=== PATIENT | female | born 1995 | race Caucasian/White ===

== ENCOUNTER 2018-09-22 13:24 | Emergency (ER) | payer MEDICAID, OTHER ==
[~2018-09-22] VITALS: Ht 154.9 cm; Wt 68.0 kg
[2018-09-22] MEDS ORDERED: CITA20TA9 (13:37)
[2018-09-22] MEDS ORDERED: BUPIVACAINE 0.5% 30 ML (SENSORCAINE) VIAL ONE ×2 (13:41→13:49)
[2018-09-22] MEDS ORDERED: LIDOCAINE 1% INJ 20 ML 20 ML VIAL INJ ONE (13:45)
[2018-09-22] MEDS ORDERED: BUPIVACAINE 0.25% 30 ML (SENSORCAINE) VIAL INJ ONE (13:45)
--- NOTE | 2018-09-22 13:57 | ED EENT ---
History of Present Illness General Chief Complaint: Dental Problems/Pain Stated Complaint: DENTAL PAIN Nursing Triage Note: REPORTS HER LEFT LOWER GUM LINE AND TETTH ARE HURTING. Source: patient Exam Limitations: no limitations History of Present Illness Date Seen by Provider: Sep 22, 2018 Time Seen by Provider: 13:35 Initial Comments This 23-year-old young lady presents to the emergency room with complaints of intense dental pain around the left lower molars. She has deep dull caries in that location. Pain just started this morning. She denies associated fever. She tried to call the dentist this morning but they were not open. Allergies and Home Medications Allergies Coded Allergies: amoxicillin (Verified Allergy, Mild, RASH, 09/22/18) Penicillins (Verified Allergy, Unknown, 09/22/18) Sulfa (Sulfonamide Antibiotics) (Verified Allergy, Unknown, 09/22/18) Home Medications Clindamycin HCl 300 Mg Capsule, 300 MG PO QID Prescribed by: CHER LIZAMA on 09/22/18 1409 Hydrocodone/Acetaminophen 1 Each Tablet, 1 TAB PO Q4-6HR Prescribed by: CHER LIZAMA on 09/22/18 1409 Patient Home Medication List Home Medication List Reviewed: Yes Review of Systems Review of Systems Constitutional: no symptoms reported Eyes: No Symptoms Reported Ears: No Symptoms Reported Nose: no symptoms reported Mouth: see HPI Throat: no symptoms reported Respiratory: no symptoms reported Cardiovascular: no symptoms reported Gastrointestinal: no symptoms reported Musculoskeletal: no symptoms reported Skin: no symptoms reported Neurological: No Symptoms Reported Past Hqxfyjr-Xsrcmk-Ggpqnk Hx Past Med/Social Hx: Reviewed Nursing Past Med/Soc Hx Patient Social History Alcohol Use: Denies Use Recreational Drug Use: No Smoking Status: Current Everyday Smoker Type Used: Cigarettes 2nd Hand Smoke Exposure: Yes Recent Foreign Travel: No (N) Contact w/Someone Who Travel: No (N) Recent Infectious Disease Expo: No Recent Hopitalizations: No Physical Abuse: No Sexual Abuse: No Mistreated: No Fear: No Seasonal Allergies Seasonal Allergies: No Past Medical History Surgeries: No Respiratory: No Cardiac: No Neurological: No Genitourinary: No Gastrointestinal: No Musculoskeletal: No Endocrine: No HEENT: No Cancer: No Psychosocial: Yes Anxiety, Depression Integumentary: No Physical Exam Vital Signs Vital Signs - First Documented 09/22/18 13:37 Temp 97.5 Pulse 93 Resp 18 B/P (MAP) 158/89 (112) Pulse Ox 100 O2 Delivery Room Air Height, Weight, BMI Height: 5'1.00" Weight: 150lbs. oz. 68.080477wj; BMI Method:Stated General Appearance: WD/WN, moderate distress Ears: bilateral ear auricle normal, bilateral ear canal normal, bilateral ear TM normal Nose: normal inspection Mouth/Throat: pharynx normal, other (deep dental caries in the left posterior lower molar. No associated inflammation or overt abscess) Neck: supple, normal inspection; No lymphadenopathy (R), No lymphadenopathy (L) Cardiovascular: regular rate, rhythm, no edema Respiratory: lungs clear, normal breath sounds, no respiratory distress, no accessory muscle use Neurologic/Psychiatric: marketing consultant II-XII nml as tested, no motor/sensory deficits, alert, normal mood/affect, oriented x 3 Skin: normal color, warm/dry Procedures/Interventions Dental Procedures: infra-alveolar nerve block. Nerve block along the lateral jawline. Progress/Results/Core Measures Results/Orders My Orders Orders - CHER BLAKE MD Lidocaine 1% Inj 20 Ml (Xylocaine 1% Inj (09/22/18 13:45) Bupivacaine 0.25% Injection (Sensorcaine (09/22/18 13:45) Bupivacaine 0.5% Injection (Sensorcaine (09/22/18 13:41) Bupivacaine 0.5% Injection (Sensorcaine (09/22/18 13:49) Bupivacaine 0.5% Injection (Sensorcaine (09/22/18 14:00) Ketorolac Injection (Toradol Injection) (09/22/18 14:15) Medications Given in ED Current Medications Medications Dose Ordered Sig/Dandy Route Start Time Stop Time Status Last Admin Dose Admin Bupivacaine HCl 30 ml ONCE ONCE INJ 09/22/18 14:00 09/22/18 14:01 DC 09/22/18 13:56 30 ML Ketorolac Tromethamine 30 mg ONCE ONCE IM 09/22/18 14:15 09/22/18 14:16 DC 09/22/18 14:13 30 MG Lidocaine HCl 20 ml ONCE ONCE INJ 09/22/18 13:45 09/22/18 13:46 DC 09/22/18 13:57 20 ML Vital Signs/I&O 09/22/18 09/22/18 13:37 14:17 Temp 97.5 97.5 Pulse 93 93 Resp 18 18 B/P (MAP) 158/89 (112) 158/89 (112) Pulse Ox 100 99 O2 Delivery Room Air Room Air Blood Pressure Mean: 112 Progress Progress Note : Progress Note No overt abscess was identified that could be drained. Options were discussed with patient. She elected to have a nerve block. An infra-alveolar nerve block was performed using 1.5 mL 0.5 percent Marcaine and 1.5 mL one percent lidocaine. This failed to give her relief. She remarks that her pain seems to be localized along the lateral aspect of the mid mandible on the left. She is tender to touch in that area. An additional one mL 0.5 percent Marcaine and 1 mL one percent lidocaine was injected into separate injections along the mandibular line. This also failed to give her relief. As an alternative, an injection of Toradol was administered. Patient was prescribed clindamycin and hydrocodone and dismissed. Departure Impression Primary Impression: Dental caries Additional Impression: Pain, dental Disposition: HOME, SELF-CARE Condition: Improved Departure-Patient Inst. Decision time for Depature: 14:05 Referrals: NO,LOCAL PHYSICIAN (PCP/Family) Primary Care Physician Patient Instructions: Dental Pain (DC), Tooth Decay, Adult (DC) Add. Discharge Instructions: [address] your teeth gently twice daily. Rinse with antiseptic mouthwash such as Listerine as tolerated. Take ibuprofen up to 600 mg every 6 hours as needed for pain. Add hydrocodone for pain not controlled by ibuprofen. See a dentist as soon as possible for further evaluation and possible dental extraction. Complete your antibiotics as prescribed. All discharge instructions reviewed with patient and/or family. Voiced understanding. Scripts Hydrocodone/Acetaminophen (Hydrocodone-Acetamin 5-325 mg) 1 Each Tablet 1 TAB PO Q4-6HR for PAIN-MODERATE MDD 10, #15 TAB Prov: CHER BLAKE MD 09/22/18 Clindamycin HCl (Clindamycin HCl) 300 Mg Capsule 300 MG PO QID, #40 CAP Prov: CHER BLAKE MD 09/22/18 CHER BLAKE MD Sep 22, 2018 13:57
[2018-09-22] MEDS ORDERED: BUPIVACAINE 0.5% 30 ML (SENSORCAINE) VIAL INJ ONE (14:00)
[2018-09-22] MEDS ORDERED: CLIN300C11 PO (14:09)
[2018-09-22] MEDS ORDERED: HYDR-3812 PO (14:09)
[2018-09-22] MEDS ORDERED: KETOROLAC 30 MG/ML VIAL IM ONE (14:15)
[2018-09-22 14:17] VITALS: BP 158/89
== END 2018-09-22 14:19 | disposition home or self-care (01) ==
LOC: ER FS 13:26
DX: K02.9 Dental caries, unspecified (principal); F41.9 Anxiety disorder, unspecified; F32.9 Major depressive disorder, single episode, unspecified; F17.210 Nicotine dependence, cigarettes, uncomplicated; Z88.0 Allergy status to penicillin; Z88.2 Allergy status to sulfonamides
CPT/HCPCS: 96372; 99284

== ENCOUNTER 2018-10-27 15:23 | Emergency (ER) | payer MEDICAID ==
[~2018-10-27] VITALS: Ht 154.9 cm; Wt 68.0 kg
[~2018-10-27 15:23] MED LIST: CITA20TA9; CLIN300C11 PO; HYDR-3812 PO
--- NOTE | 2018-10-27 15:37 | ED Lower Extremity ---
General Chief Complaint: Lower Extremity Stated Complaint: LT FOOT INJURY Source: patient History of Present Illness Date Seen by Provider: Oct 27, 2018 Time Seen by Provider: 13:30 Initial Comments 23-year-old female who presents with left ankle injury. 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 She pulled down by the hose too quickly and caught her foot in the stairs. She complains of pain in the left anterior ankle. There is mild swelling, no obvious deformity. Patient reports no other injury. Onset: just prior to arrival Allergies and Home Medications Allergies Coded Allergies: amoxicillin (Verified Allergy, Mild, RASH, 09/22/18) Penicillins (Verified Allergy, Unknown, 09/22/18) Sulfa (Sulfonamide Antibiotics) (Verified Allergy, Unknown, 09/22/18) Home Medications Clindamycin HCl 300 Mg Capsule, 300 MG PO QID Prescribed by: CHER LIZAMA on 09/22/18 1409 Hydrocodone/Acetaminophen 1 Each Tablet, 1 TAB PO Q4-6HR Prescribed by: CHER LIZAMA on 09/22/18 1409 Patient Home Medication List Home Medication List Reviewed: Yes Review of Systems Constitutional: no symptoms reported Respiratory: no symptoms reported Cardiovascular: no symptoms reported Gastrointestinal: no symptoms reported Musculoskeletal: see HPI Past Tkjnsml-Awswfu-Gpocne Hx Past Med/Social Hx: Reviewed Nursing Past Med/Soc Hx Patient Social History Type Used: Cigarettes 2nd Hand Smoke Exposure: Yes Recent Hopitalizations: No Seasonal Allergies Seasonal Allergies: No Past Medical History Surgeries: No Respiratory: No Cardiac: No Neurological: No Genitourinary: No Gastrointestinal: No Musculoskeletal: No Endocrine: No HEENT: No Cancer: No Psychosocial: Yes Anxiety, Depression Integumentary: No Physical Exam Vital Signs Capillary Refill : Height, Weight, BMI Height: 5'1.00" Weight: 150lbs. oz. 68.909189on; BMI Method:Stated General Appearance: WD/WN, no apparent distress Neck: full range of motion, supple Cardiovascular: normal peripheral pulses, regular rate, rhythm Respiratory: chest non-tender, lungs clear, normal breath sounds Gastrointestinal: non tender, soft Hips: bilateral hip non-tender Knees: bilateral knee non-tender Ankles: left ankle soft tissue tenderness (Anterior aspect of the left ankle), left ankle swelling Progress/Results/Core Measures Results/Orders My Orders Orders - AMAIRANI HAWKINS DO Ankle 3 View Left (10/27/18 15:28) Gel Ankle Brace (10/27/18 15:51) Progress Progress Note : Progress Note Review negative x-ray with patient. Patient will be placed in a gel ankle splint. Patient able to ambulate as needed on it. Resume activity as tolerated. Patient be discharged home in stable condition. Should follow-up with her primary care physician in 7-10 days if symptoms are not improving or continue to worsen. Diagnostic Imaging Diagonstic Imaging: Xray Plain Films/CT/US/NM/MRI: ankle Departure Impression Primary Impression: Left ankle sprain Qualified Codes: S93.402A - Sprain of unspecified ligament of left ankle, initial encounter Disposition: HOME, SELF-CARE Condition: Stable Departure-Patient Inst. Referrals: NO,LOCAL PHYSICIAN (PCP/Family) Primary Care Physician Patient Instructions: Ankle Sprain (DC) AMAIRANI HAWKINS DO Oct 27, 2018 15:37
--- NOTE | 2018-10-27 15:47 | Diagnostic Imaging Report ---
INDICATION: Left ankle pain. Three views of the left ankle were obtained. FINDINGS: Alignment is normal. The plafonds and talar dome are intact. Ankle mortise is symmetric. No fracture dislocation. Soft tissues are unremarkable. IMPRESSION: No acute fracture or dislocation. Dictated by: Dictated on workstation # [id number]
[2018-10-27 16:15] VITALS: BP 130/69
== END 2018-10-27 16:30 | disposition home or self-care (01) ==
LOC: EDUNIT# 15:23 → ER FS 15:24
DX: S93.402A Sprain of unspecified ligament of left ankle, initial encounter (principal); F41.9 Anxiety disorder, unspecified; F32.9 Major depressive disorder, single episode, unspecified; Z88.0 Allergy status to penicillin; Z88.2 Allergy status to sulfonamides; Z77.22 Contact with and (suspected) exposure to environmental tobacco smoke (acute) (chronic); X50.1XXA Overexertion from prolonged static or awkward postures, initial encounter
CPT/HCPCS: 73610

== ENCOUNTER 2019-01-28 00:47 | Emergency (ER) | payer MEDICAID ==
[~2019-01-28] VITALS: Ht 154.9 cm; Wt 68.0 kg
--- OUTSIDE RECORDS SUMMARY | 2019-01-28 00:53 | XMS REPORT | Continuity of Care Document ---
Author Organization Unknown Address Unknown Phone Unavailable Allergies There is no data. Medications There is no data. Problems There is no data. Procedures There is no data. Results Test Result Range HCG, QUANTITATIVE - 12/11/18 11:38 HCG, TOTAL, QN <2 mIU/mL NRG Encounters ACCT No. Visit Date/Time Discharge Status Pt. Type Provider Facility Loc./Unit Complaint [id number] 01/24/2019 17:00:00 01/24/2019 23:59:59 [facility] Outpatient JUN VALLES L[facility] [id number] 12/11/2018 11:00:00 Document Registration
--- NOTE | 2019-01-28 01:11 | ED Headache ---
General Chief Complaint: Head/Cervical Problems Stated Complaint: FEVER,CHILLS,MIGRAINE Nursing Triage Note: PT. REPORTED SHE HAS HAD A MIGRAINE SINCE MONDAY, NAUSEA AND VOMITING STARTED YESTERDAY AND SHE HAS VOMITED MAYBE 5 TIMES. SHE REPORTED SHE IS CHILLING AND HAS A FEVER. PT. TEMP. WAS 99.8. Nursing Sepsis Screen: Possible Sepsis Risk Source: patient History of Present Illness Date Seen by Provider: Jan 28, 2019 Time Seen by Provider: 01:00 Initial Comments This is a 23 y/o f who presents to the ED with c/o headache. Reports progressive waxing/waning headache for the past Monday. Onset of nausea/vomiting yesterday. Contrary to triage note, no fever. No GI bleed symptoms. no travel. UTD on vaccinations. Headache is diffuse, 8/10, +photophobia, +phonophobia. No alleviating factors. Allergies and Home Medications Allergies Coded Allergies: amoxicillin (Verified Allergy, Mild, RASH, 09/22/18) Penicillins (Verified Allergy, Unknown, 09/22/18) Sulfa (Sulfonamide Antibiotics) (Verified Allergy, Unknown, 09/22/18) Home Medications Clindamycin HCl 300 Mg Capsule, 300 MG PO QID Prescribed by: CHER LIZAMA on 09/22/18 1409 Hydrocodone/Acetaminophen 1 Each Tablet, 1 TAB PO Q4-6HR Prescribed by: CHER LIZAMA on 09/22/18 1409 Patient Home Medication List Home Medication List Reviewed: Yes Review of Systems Review of Systems Constitutional: No chills, No fever, No weakness Eyes: Denies Blurred Vision, Denies Pain; Photophobia Respiratory: No cough, No short of breath, No stridor, No wheezing Cardiovascular: No edema, No palpitations Gastrointestinal: No abdominal pain, No diarrhea; nausea, vomiting Genitourinary: No dysuria, No frequency Musculoskeletal: No back pain, No joint pain, No muscle pain, No muscle stiff ness, No neck pain Skin: No pruritus All Other Systems Reviewed Negative Unless Noted: Yes Past Lavkhqp-Zmemud-Nbrfji Hx Patient Social History Type Used: Cigarettes 2nd Hand Smoke Exposure: No Recent Foreign Travel: No Contact w/Someone Who Travel: No Recent Infectious Disease Expo: No Recent Hopitalizations: No Physical Abuse: No Sexual Abuse: No Mistreated: No Fear: No Seasonal Allergies Seasonal Allergies: No Past Medical History Surgeries: No Respiratory: No Cardiac: No Neurological: No Genitourinary: No Gastrointestinal: No Musculoskeletal: No Endocrine: No HEENT: No Cancer: No Psychosocial: Yes Anxiety, Depression Integumentary: No Blood Disorders: No Physical Exam Vital Signs Vital Signs - First Documented 01/28/19 00:55 Temp 99.8 Pulse 100 Resp 16 B/P (MAP) 143/61 (88) O2 Delivery Room Air Capillary Refill : Less Than 3 Seconds Height, Weight, BMI Height: 5'1.00" Weight: 150lbs. oz. 68.843251jm; BMI Method:Stated General Appearance: WD/WN, other (non-toxic appearing) HEENT: PERRL/EOMI Neck: non-tender, full range of motion Cardiovascular: regular rate, rhythm, no gallop, no murmur Respiratory: normal breath sounds, no respiratory distress, no accessory muscle use Gastrointestinal: normal bowel sounds, non tender, soft Extremities: normal range of motion, non-tender, no pedal edema Psychiatric: alert, oriented x 3 Crainal Nerves: normal hearing, normal speech, PERRL; No facial droop Coordination/Gait: normal finger to nose, normal gait Motor/Sensory: no motor deficit, no sensory deficit Skin: normal color, warm/dry Progress/Results/Core Measures Results/Orders Lab Results Laboratory Tests Test 01/28/19 01:15 Range/Units Urine Test NEGATIVE NEGATIVE My Orders Orders - GM MATIAS DO Hcg,Qualitative Urine (01/28/19 01:06) Ketorolac Injection (Toradol Injection) (01/28/19 01:15) Ns Iv 1000 Ml (Sodium Chloride 0.9%) (01/28/19 01:15) Diphenhydramine Injection (Benadryl Inje (01/28/19 01:15) Prochlorperazine Injection (Compazine In (01/28/19 01:15) Medications Given in ED Current Medications Medications Dose Ordered Sig/Dandy Route Start Time Stop Time Status Last Admin Dose Admin Diphenhydramine HCl 50 mg ONCE ONCE IVP 01/28/19 01:15 01/28/19 01:16 DC 01/28/19 01:29 50 MG Ketorolac Tromethamine 30 mg ONCE ONCE IVP 01/28/19 01:15 01/28/19 01:16 DC 01/28/19 01:29 30 MG Prochlorperazine Edisylate 10 mg ONCE ONCE IV 01/28/19 01:15 01/28/19 01:16 DC 01/28/19 01:28 10 MG Vital Signs/I&O 01/28/19 01/28/19 00:55 01:43 Temp 99.8 98.4 Pulse 100 Resp 16 B/P (MAP) 143/61 (88) O2 Delivery Room Air Blood Pressure Mean: 88 Progress Progress Note : Progress Note Sleeping. Feeling better. Has a ride home. Discussed continued supportive care. ER return precautions given. Pt verbalized understanding. All questions answered. Departure Impression Primary Impression: Migraine Additional Impressions: Vomiting Dehydration Disposition: 01 HOME, SELF-CARE Condition: Improved Departure-Patient Inst. Referrals: NO,LOCAL PHYSICIAN (PCP/Family) Primary Care Physician Patient Instructions: Migraine Headache (DC) Add. Discharge Instructions: Please read the attached handout. Drink plenty of fluids for the next 24 hrs. Return to the ER if your symptoms worsen or you have any other concerns. All discharge instructions reviewed with patient and/or family. Voiced understanding. GM MATIAS DO Jan 28, 2019 01:11
[2019-01-28] MEDS ORDERED: diphenhydrAMINE 50 MG/ML INJ (BENADRYL) IVP ONE (01:15)
[2019-01-28] MEDS ORDERED: PROCHLORPERAZINE 10 MG/2ML INJ (COMPAZINE) IV ONE (01:15)
[2019-01-28] MEDS ORDERED: KETOROLAC 30 MG/ML VIAL IVP ONE (01:15)
[2019-01-28] MEDS ORDERED: NS IV 1000 ML 1,000 ML IV SCH (01:15)
[2019-01-28 01:53] VITALS: BP 143/61
== END 2019-01-28 01:56 | disposition home or self-care (01) ==
LOC: EDUNIT# 00:47 → ER FS 00:49
DX: G43.909 Migraine, unspecified, not intractable, without status migrainosus (principal); R11.2 Nausea with vomiting, unspecified; E86.0 Dehydration; F41.9 Anxiety disorder, unspecified; F32.9 Major depressive disorder, single episode, unspecified; Z88.0 Allergy status to penicillin; Z88.1 Allergy status to other antibiotic agents; Z88.2 Allergy status to sulfonamides
CPT/HCPCS: 84703; 96374; 96375; 99284

== ENCOUNTER 2020-02-14 11:43 | Outpatient (CLI) | payer MEDICAID ==
[~2020-02-14] VITALS: Ht 154 cm; Wt 80.0 kg
[~2020-02-14 11:43] MED LIST changes: +ACHD5005 PO; -HYDR-3812 PO
--- NOTE | 2020-02-14 11:48 | NUR ---
ANAID RIVAS presented to unit via from ED, accompanied by signifant other, with c/o CONTRACTIONS;VAGINAL BLEEDING. ANAID RIVAS weighed, gowned, voided, and to bed. EFHM and TOCO applied, VS taken. ANAID RIVAS oriented to bed controls, call light, TV, heat, and A/C controls.
[2020-02-14 12:00] VITALS: BP 131/69
--- NOTE | 2020-02-14 12:32 | NUR ---
Dr Aviles notified of pt admission. No blood upon visual inspection by this RN of vaginal area. Urine clear without blood noted on dipstick. Will send home after reactive NST. at 30 wks. 1250 Infant active with accelerations. Pt having sharp stabbing pains in rt groin area and also feels some uterine cramping. Uterine irritability noted on strip. 1351 Discharged to exit. No vaginal bleeding.
[2020-02-14] MEDS ORDERED: FOLI0.8C PO (13:40)
[2020-02-14] MEDS ORDERED: PREN1TAB79 PO (13:40)
--- NOTE | 2020-02-17 08:43 | Physician Query-Final Dx ---
SHEA MEJIA 02/17/20 0843: Clinic Account Progress/Dx Physician Query: Please give diagnosis Please include # weeks gestation Date of Service Feb 14, 2020 at 11:43 VANESSA GONZALES DO 02/17/20 1717: Clinic Account Progress/Dx Physician Query: Please give diagnosis DIAGNOSIS: Diagnosis Intrauterine at 33+ weeks 2 .Third Trimester Bleeding 3. Pelvic Pain SHEA MEJIA Feb 17, 2020 08:43 VANESSA GONZALES DO Feb 17, 2020 17:17
== END 2020-02-14 13:51 | disposition home or self-care (01) ==
LOC: WSo 11:43 → LDRP 11:44 → WSo 13:51
PROVIDERS: ATTEND Obstetrics & Gynecology
DX: O46.93 Antepartum hemorrhage, unspecified, third trimester (principal); O26.893 Other specified pregnancy related conditions, third trimester; R10.2 Pelvic and perineal pain; Z3A.33 33 weeks gestation of pregnancy
CPT/HCPCS: 99213

== ENCOUNTER 2020-03-24 18:35 | Outpatient (CLI) | payer MEDICAID ==
[~2020-03-24] VITALS: Ht 154.9 cm; Wt 81.5 kg
[~2020-03-24 18:35] MED LIST changes: +FOLI0.8C PO; +PREN1TAB79 PO
--- NOTE | 2020-03-24 18:40 | NUR ---
ANAID RIVAS presented to unit from ED, accompanied by Significant Other, with c/o BLOOD IN URINE/LOWER STOMACH PAIN. ANAID RIVAS weighed, gowned, voided, and to bed. EFHM and TOCO applied, VS taken. ANAID RIVAS oriented to bed controls, call light, TV, heat, and A/C controls.
[2020-03-24 18:50] VITALS: BP 145/80
--- NOTE | 2020-03-24 19:10 | NUR ---
Report to Noam Mccracken RN.
[2020-03-24 19:13] LABS: BILIRUBIN,URINE NEGATIVE (NEGATIVE); CLARITY,URINE CLEAR; COLOR,URINE YELLOW; GLUCOSE, URINE (UA) NEGATIVE (NEGATIVE); KETONES,URINE NEGATIVE (NEGATIVE); LEUKOCYTE ESTERASE ,URINE TRACE (NEGATIVE); NITRITE,URINE NEGATIVE (NEGATIVE); PROTEIN,URINE NEGATIVE (NEGATIVE)
[2020-03-24 19:19] LABS: BACTERIA,URINE NEGATIVE /HPF; WBC,URINE RARE /HPF
--- NOTE | 2020-03-24 19:45 | NUR ---
Discharge packet given and explained, understanding voiced, pt ambulatory off unit at this time accompanied by s/o. no ss distress.
--- NOTE | 2020-03-25 08:17 | Physician Query-Final Dx ---
SHEA MEJIA 03/25/20 0817: Clinic Account Progress/Dx Physician Query: Please give diagnosis Please include # weeks gestation Date of Service Mar 24, 2020 at 18:35 BERNIE LOWE DO 03/25/20 0959: Clinic Account Progress/Dx DIAGNOSIS: Diagnosis 35 week GA reported hematuria - not found on UA back pain SHEA MEJIA Mar 25, 2020 08:17 BERNIE LOWE DO Mar 25, 2020 09:59
== END 2020-03-24 19:45 | disposition home or self-care (01) ==
LOC: LDRP 18:35 → WSo 18:35
PROVIDERS: ATTEND Family Medicine
DX: O26.893 Other specified pregnancy related conditions, third trimester (principal); O99.89 Other specified diseases and conditions complicating pregnancy, childbirth and the puerperium; R31.9 Hematuria, unspecified; Z3A.35 35 weeks gestation of pregnancy
CPT/HCPCS: 81000

== ENCOUNTER 2020-04-12 20:20 | Outpatient (CLI) | payer MEDICAID ==
[~2020-04-12] VITALS: Ht 154.9 cm; Wt 80.5 kg
--- NOTE | 2020-04-12 20:25 | NUR ---
ANAID RIVAS presented to unit via AMBULATORY from ED, accompanied by S/O, with c/o BACK PAIN. ANAID RIVAS weighed, gowned, voided, and to bed. EFHM and TOCO applied, VS taken. ANAID RIVAS oriented to bed controls, call light, TV, heat, and A/C controls. ABOVE AND FURTHER ASSESSMENTS CARRIED OUT PER ARABELLA SILVA.
[2020-04-12 22:04] VITALS: BP 123/72
--- NOTE | 2020-04-12 22:10 | NUR ---
Discharge instructions reviewed with pt and s.o. No questions or concerns verbalized. Labor precautions reviewed. Pt denies any concerns. Signature sheet signed, placed on chart. Pt ambulating off unit at time to private vehicle. No signs of distress noted.
[2020-04-12 22:40] VITALS: BP 123/72
--- NOTE | 2020-04-13 08:38 | Physician Query-Final Dx ---
SHEA MEJIA 04/13/20 0838: Clinic Account Progress/Dx Physician Query: Please give diagnosis Please include # weeks gestation Date of Service Apr 12, 2020 at 20:20 PETTY RIVERO DO 04/13/20 0904: Clinic Account Progress/Dx DIAGNOSIS: Diagnosis 38 week IUP Pelvic pressure Irregular contractions SHEA MEJIA Apr 13, 2020 08:38 PETTY RIVERO DO Apr 13, 2020 09:04
== END 2020-04-12 22:10 | disposition home or self-care (01) ==
LOC: WSo 20:20 → LDRP 20:20 → WSo 22:10
PROVIDERS: ATTEND Obstetrics & Gynecology
DX: O62.8 Other abnormalities of forces of labor (principal); Z3A.37 37 weeks gestation of pregnancy
CPT/HCPCS: 99213

== ENCOUNTER 2020-04-14 14:18 | Inpatient (IN) | payer MEDICAID ==
[2020-04-14] VITALS (32 sets, daily range): BP systolic 132–167; BP diastolic 62–108
[~2020-04-14] VITALS: Ht 154.9 cm; Wt 80.3 kg
--- NOTE | 2020-04-14 14:20 | NUR ---
ANAID RIVAS presented to unit via ambulation from ED, accompanied by s/o, for direct admit for labor. Pt. weighed, gowned, voided, and to bed. EFHM and TOCO applied, VS taken. Pt. oriented to bed controls, call light, TV, heat, and A/C controls.
[2020-04-14] MEDS ORDERED: D5 LR IV SOLUTION 1,000 ML IV ONE (14:43)
[2020-04-14] MEDS ORDERED: D5 LR IV SOLUTION 1,000 ML IV SCH (14:45)
--- NOTE | 2020-04-14 14:54 | NUR ---
#18G IV to Rt.wrist per this RN. site patent, secured with opsite. admission labs collected prior to IVF's infusing. pt tolerated well.
--- NOTE | 2020-04-14 15:11 | NUR ---
called to check on pt's status. update given on monitor tracing and SVE. new orders received for pitocin protocol and epidural placement.
[2020-04-14 15:12] LABS: BILIRUBIN,URINE NEGATIVE (NEGATIVE); CLARITY,URINE CLEAR; COLOR,URINE YELLOW; GLUCOSE, URINE (UA) NEGATIVE (NEGATIVE); KETONES,URINE NEGATIVE (NEGATIVE); LEUKOCYTE ESTERASE ,URINE 2+ (NEGATIVE); NITRITE,URINE NEGATIVE (NEGATIVE); PROTEIN,URINE NEGATIVE (NEGATIVE)
[2020-04-14 15:13] LABS: BASOPHILS % (AUTO) 0 % (0-10); EOSINOPHILS # (AUTO) 0.2 10^3/uL (0.0-0.3); EOSINOPHILS % (AUTO) 1 % (0-10); HEMATOCRIT 30 % (35-52); HEMOGLOBIN 9.9 g/dL (11.5-16.0); LYMPHOCYTES # (AUTO) 4.2 10^3/uL (1.0-4.0); LYMPHOCYTES % (AUTO) 22 % (12-44); MEAN CORPUSCULAR HEMOGLOBIN 29 pg (25-34); MEAN CORPUSCULAR HGB CONC 33 g/dL (32-36); MEAN CORPUSCULAR VOLUME 89 fL (80-99); MEAN PLATELET VOLUME 12.5 fL (9.0-12.2); MONOCYTES # (AUTO) 0.9 10^3/uL (0.0-1.0); MONOCYTES % (AUTO) 4 % (0-12); NEUTROPHILS # (AUTO) 14.1 10^3/uL (1.8-7.8); NEUTROPHILS % (AUTO) 72 % (42-75); PLATELET COUNT 212 10^3/uL (130-400); WHITE BLOOD COUNT 19.6 10^3/uL (4.3-11.0)
[2020-04-14 15:20] LABS: BACTERIA,URINE TRACE /HPF
--- NOTE | 2020-04-14 15:25 | NUR ---
DONNA Chavez was notified of pt's request for epidural.
[2020-04-14 15:37] LABS: BAND NEUTROPHILS 0 %; BASOPHILS % (MANUAL) 0 %; EOSINOPHILS % (MANUAL) 2 %; LYMPHOCYTES % (MANUAL) 19 %; MONOCYTES % (MANUAL) 4 %; NEUTROPHILS % (MANUAL) 75 %; RBC MORPH NORMAL
[2020-04-14] MEDS ORDERED: fentaNYL 2 mcg/ml BUPIVA 0.125 100 ML ONE (15:47)
[2020-04-14] MEDS ORDERED: OXYTOCIN PRE-MIX DRIP 500 ML IV ONE (15:48)
[2020-04-14] MEDS: OXYTOCIN PRE-MIX DRIP 500 ML IV SCH ×2 (16:03→20:36)
[2020-04-14] MEDS ORDERED: fentaNYL INJECTION 100 MCG/2 ML AMP ONE (16:05)
[2020-04-14] MEDS ORDERED: BUPIVACAINE 0.25% 30 ML (SENSORCAINE) VIAL ONE (16:05)
[2020-04-14] MEDS ORDERED: LACTATED RINGERS 1,000 ML IV SCH (17:06)
[2020-04-14] MEDS ORDERED: METOCLOPRAMIDE INJ 10 MG/2 ML (REGLAN) IV PRN (17:15)
[2020-04-14] MEDS ORDERED: diphenhydrAMINE 50 MG/ML INJ (BENADRYL) IV PRN (17:15)
[2020-04-14] MEDS ORDERED: NALOXONE 0.4 MG/ML 1 ML (NARCAN) VIAL IV PRN ×2 (17:15)
[2020-04-14] MEDS ORDERED: ONDANSETRON 4 MG/2 ML (SDV) Z0FRAN IV PRN (17:15)
[2020-04-14] MEDS ORDERED: EPIDURAL (fentaNYL 2 MCG/ML BUPIVA 0.125%)100 ML BAG EPI PRN (17:15)
[2020-04-14] MEDS ORDERED: AMPICILLIN FOR IV USE 2,000 MG VIAL ONE (17:18)
[2020-04-14] MEDS ORDERED: WATER (STERILE) FOR INJECTION 0 ML ONE (17:18)
[2020-04-14] MEDS ORDERED: ceFAZolin 2 GM IV Premixed 50 ML ONE (17:25)
[2020-04-14] MEDS ORDERED: ceFAZolin 2 GM IV Premixed 50 ML IV ONE (17:30)
--- NOTE | 2020-04-14 18:02 | NUR ---
DONNA Chavez was called r/t pt's c/o ctx's. rates pain @ 7 on 1-10 scale. pt reports left side "not numb". able to move LE's without difficulty. breathing with ctx's.
--- NOTE | 2020-04-14 18:02 | History & Physical-OB ---
OB - Chief Complaint & HPI Date/Time Date of Admission: Date of Admission: Date seen by a Provider: Apr 14, 2020 Time Seen by a Provider: 17:30 Chief Complaint/History OB-Reason for Admission/Chief: Onset of Labor Hx : 3 Hx Para: 2 Gestational Age in Weeks: 39 Gestational Age in Days: 4 Admission Nurse Assessment Rev: Yes Allergies and Home Medications Allergies Coded Allergies: amoxicillin (Verified Allergy, Mild, RASH, 09/22/18) Penicillins (Verified Allergy, Unknown, 09/22/18) Sulfa (Sulfonamide Antibiotics) (Verified Allergy, Unknown, 09/22/18) sulfamethoxazole (Verified Allergy, Unknown, 03/24/20) trimethoprim (Verified Allergy, Unknown, 03/24/20) Home Medications Folic Acid 0.8 Mg Capsule, 0.8 MG PO DAILY, (Reported) Vit W-Ca,Fe,FA(<1 mg) 1 Each Tablet, 1 EACH PO DAILY, (Reported) Patient Home Medication List Home Medication List Reviewed: Yes OB - History Hx of Present Care: Yes Ultrasounds: Normal mid trimester US Obstetrical Complications: None Medical Complications: None Patient Past Medical History previously healthy Social History/Family History 2nd Hand Smoke Exposure: Yes OB - Admission Exam Physical Exam Vitals: Vital Signs 04/14/20 14:30 Temp 37.1 Pulse 116 Resp 18 Pulse Ox 98 O2 Delivery Room Air HEENT: NCAT Heart: Rhythm Normal Lungs: Clear Abdomen: Gravid Extremities: Normal Reflexes: Normal Cervical Dilatation: 6cm Effacement: 75% Station: -3 Membranes: Ruptured Amniotic Fluid: Clear Heart Rate: 120's Accelerations: Accelerations Present Decelerations: No Decelerations Short Term Variability: Present Mcfp Variability: Average (6-25) Contractions on Admission: < 5 Minutes Apart Labs Laboratory Tests Test 04/14/20 14:54 04/14/20 15:04 Range/Units White Blood Count 19.6 H 4.3-11.0 10^3/uL Red Blood Count 3.37 L 3.80-5.11 10^6/uL Hemoglobin 9.9 L 11.5-16.0 g/dL Hematocrit 30 L 35-52 % Mean Corpuscular Volume 89 80-99 fL Mean Corpuscular Hemoglobin 29 25-34 pg Mean Corpuscular Hemoglobin Concent 33 32-36 g/dL Red Cell Distribution Width 14.7 H 10.0-14.5 % Platelet Count 212 130-400 10^3/uL Mean Platelet Volume 12.5 H 9.0-12.2 fL Immature Granulocyte % (Auto) 1 % Neutrophils (%) (Auto) 72 42-75 % Lymphocytes (%) (Auto) 22 12-44 % Monocytes (%) (Auto) 4 0-12 % Eosinophils (%) (Auto) 1 0-10 % Basophils (%) (Auto) 0 0-10 % Neutrophils # (Auto) 14.1 H 1.8-7.8 10^3/uL Lymphocytes # (Auto) 4.2 H 1.0-4.0 10^3/uL Monocytes # (Auto) 0.9 0.0-1.0 10^3/uL Eosinophils # (Auto) 0.2 0.0-0.3 10^3/uL Basophils # (Auto) 0.0 0.0-0.1 10^3/uL Immature Granulocyte # (Auto) 0.1 0.0-0.1 10^3/uL Neutrophils % (Manual) 75 % Lymphocytes % (Manual) 19 % Monocytes % (Manual) 4 % Eosinophils % (Manual) 2 % Basophils % (Manual) 0 % Band Neutrophils 0 % Blood Morphology Comment NORMAL Urine Color YELLOW Urine Clarity CLEAR Urine pH 7.0 5-9 Urine Specific [place] 1.010 L 1.016-1.022 Urine Protein NEGATIVE NEGATIVE Urine Glucose (UA) NEGATIVE NEGATIVE Urine Ketones NEGATIVE NEGATIVE Urine Nitrite NEGATIVE NEGATIVE Urine Bilirubin NEGATIVE NEGATIVE Urine Urobilinogen 1.0 < = 1.0 MG/DL Urine Leukocyte Esterase 2+ H NEGATIVE Urine RBC (Auto) NEGATIVE NEGATIVE Urine RBC NONE /HPF Urine WBC 5-10 H /HPF Urine Squamous Epithelial Cells 2-5 /HPF Urine Crystals NONE /LPF Urine Bacteria TRACE /HPF Urine Casts NONE /LPF Urine Mucus NEGATIVE /LPF Urine Culture Indicated YES OB - Assessment/Plan/Diagnosis Assessment Assessment: active labor Admission Dx Labor at 38 2/7 wga. Admission Status: Inpatient Order (span 2 midnights) Reason for Inpatient Admission: Labor at 38 2/7 wga. Plan Induction Method: per Pitocin Protocol Other Plan Augment with pitocin. AROM. Epidural for pain. Will start ancef for elevated white count of 19,000. MAYRA CHANEY MD Apr 14, 2020 18:02
[2020-04-14] MEDS ORDERED: OXYTOCIN PRE-MIX DRIP 500 ML IV SCH (18:03)
[2020-04-14] MEDS ORDERED: BENZOCAINE/MENTHOL (DERMOPLAST) 60 ML CAN TP PRN (18:15)
[2020-04-14] MEDS ORDERED: MEASLES,MUMPS,RUBELLA 1 EA INJ SQ ONE (18:15)
[2020-04-14] MEDS ORDERED: WITCH HAZEL(TUCKS) 40 EA JAR TOP PRN (18:15)
[2020-04-14] MEDS ORDERED: TETANUS,DIPTH,PERTUSS P/F (BOOSTRIX) 0.5 ML VIAL IM ONE (18:15)
[2020-04-14] MEDS ORDERED: LIDOCAINE PF 2% 5 ML (XYLOCAINE) VIAL ONE ×2 (18:17→18:45)
--- NOTE | 2020-04-14 18:18 | NUR ---
Tutu, ESTELLE here on unit to eval. hdez
--- NOTE | 2020-04-14 20:12 | OB Labor & Delivery Record ---
Vag Delivery Note Vag Delivery Note Date of Delivery: 04/14/20 Preoperative Diagnosis: Isabel Roblero is a (25 /Para 3 / 2, Gestational Age (wks)38with [4/7 wga] Postoperative Diagnosis: Same Surgeon: MAYRA CHANEY Bear Keeper: [none] Anesthesia: [epidural] Delivery Type: [] Findings: [] Viable [male] infant, apgars [8/9], weight [7 pounds 6 ounces] Lacerations: Intact placenta with 3 vessel cord. No nuchal cord, body cord or shoulder dystocia Estimated Blood Loss: [100] ml Complications: None Condition: Stable Description of Procedure: The patient is a 25 year old female who presented [in labor]. She was admitted and informed consent was obtained. Her labor course was remarkable for [OP] She progressed to complete dilatation and began to push. She was then set up for delivery. The infant's head was delivered atraumatically in the [OA] position. The shoulders and remainder of the 's body were then delivered without difficulty. Upon delivery, the head was held below the level of the perineum and the mouth and nares were bulb suctioned. The cord was doubly clamped and cut after 60 seconds on maternal abdomen by father of baby. An intact placenta with 3-vessel cord delivered via Luis and there was found to be minimal bleeding.~ Vigorous fundal massage was performed and the fundus was found to be firm. IV oxytocin was given. Examination of the vagina and perineum revealed no lacerations. Following the repair, sponge, instrument and needle counts were correct. Mom and baby were both in stable condition in the labor suite. Vitals - Labs Vital Signs - I&O Vital Signs Date Time Temp Pulse Resp B/P (MAP) Pulse Ox O2 Delivery O2 Flow Rate FiO2 04/14/20 19:30 100 18 141/66 (91) Room Air 04/14/20 19:15 125 18 160/108 (125) 100 Room Air 04/14/20 19:00 36.9 109 18 134/71 (92) 100 Room Air 04/14/20 19:00 125 18 160/108 (125) 100 Room Air 04/14/20 18:45 108 18 134/71 (92) 100 Room Air 04/14/20 18:30 98 18 148/62 (90) 100 Room Air 04/14/20 18:15 108 18 167/92 (117) 98 Room Air 04/14/20 18:00 88 18 137/79 (98) 92 Room Air 04/14/20 17:45 102 18 133/82 (99) 100 Room Air 04/14/20 17:30 91 18 138/74 (95) 100 Room Air 04/14/20 17:15 90 18 142/83 (102) 100 Room Air 04/14/20 17:00 88 18 145/73 (97) 100 Room Air 04/14/20 16:50 89 18 132/66 (88) 100 Room Air 04/14/20 16:45 92 18 138/67 (90) 100 Room Air 04/14/20 16:40 88 18 134/65 (88) 99 Room Air 04/14/20 16:35 95 18 139/77 (97) 99 Room Air 04/14/20 16:30 96 18 138/80 (99) 100 Room Air 04/14/20 16:25 94 18 135/77 (96) 100 Room Air 04/14/20 16:23 95 18 145/88 (107) 98 Room Air 04/14/20 16:20 36.8 91 18 139/88 (105) 99 Room Air 04/14/20 16:15 92 18 143/86 (105) 99 Room Air 04/14/20 16:10 83 18 141/86 (104) 87 Room Air 04/14/20 16:00 85 18 136/82 (100) Room Air 04/14/20 14:30 37.1 116 18 98 Room Air Labs Laboratory Tests 04/14/20 14:54: White Blood Count 19.6H, Red Blood Count 3.37L, Hemoglobin 9.9L, Hematocrit 30L, Mean Corpuscular Volume 89, Mean Corpuscular Hemoglobin 29, Mean Corpuscular He moglobin Concent 33, Red Cell Distribution Width 14.7H, Platelet Count 212, Mean Platelet Volume 12.5H, Immature Granulocyte % (Auto) 1, Neutrophils (%) (Auto) 72, Lymphocytes (%) (Auto) 22, Monocytes (%) (Auto) 4, Eosinophils (%) (Auto) 1, Basophils (%) (Auto) 0, Neutrophils # (Auto) 14.1H, Lymphocytes # (Auto) 4.2H, Monocytes # (Auto) 0.9, Eosinophils # (Auto) 0.2, Basophils # (Auto) 0.0, Immature Granulocyte # (Auto) 0.1, Neutrophils % (Manual) 75, Lymphocytes % (Manual) 19, Monocytes % (Manual) 4, Eosinophils % (Manual) 2, Basophils % (Manual) 0, Band Neutrophils 0, Blood Morphology Comment NORMAL 04/14/20 15:04: Urine Color YELLOW, Urine Clarity CLEAR, Urine pH 7.0, Urine Specific [place] 1.010L, Urine Protein NEGATIVE, Urine Glucose (UA) NEGATIVE, Urine Ketones NEGATIVE, Urine Nitrite NEGATIVE, Urine Bilirubin NEGATIVE, Urine Urobilinogen 1.0, Urine Leukocyte Esterase 2+H, Urine RBC (Auto) NEGATIVE, Urine RBC NONE, Urine WBC 5-10H, Urine Squamous Epithelial Cells 2-5, Urine Crystals NONE, Urine Bacteria TRACE, Urine Casts NONE, Urine Mucus NEGATIVE, Urine Culture Indicated YES MAYRA CHANEY MD Apr 14, 2020 20:12
[2020-04-14] MEDS ORDERED: IBUPROFEN 600 MG (MOTRIN) TAB PO ONE (20:46)
--- NOTE | 2020-04-14 21:00 | NUR ---
Pt states she has the urge to void. able to move legs, ff 1 below. small 3cm clot expressed. rubra light. pt ambulated to the bathroom. Positive void. pericare completed. gown changed. new pad applied. pt assisted back to bed. cold tray provided. pt denies any needs at this time. will continue to monitor.
[2020-04-14] MEDS: IBUPROFEN 600 MG (MOTRIN) TAB PO SCH (21:13)
[2020-04-14] MEDS: ACETAMINOPHEN 500 MG TAB (TYLENOL) PO SCH (21:13)
[2020-04-14] MEDS: DOCUSATE SODIUM 100 MG (COLACE) CAP PO SCH (21:13)
[2020-04-14] MEDS ORDERED: CATHETER FLUSH 10 ML SYR IV SCH ×2 (22:00)
--- NOTE | 2020-04-14 22:00 | NUR ---
pt up to the bathroom. positive void. rubra light/moderate. pt assisted to w/c and taken down to 310. pt orientated to room. call light within reach. info papers discussed. pt denies any needs will continue to monitor.
[2020-04-15] MEDS: IBUPROFEN 600 MG (MOTRIN) TAB PO SCH ×3 (02:20→15:00)
[2020-04-15 02:23] VITALS: BP 142/83
[2020-04-15] MEDS: ACETAMINOPHEN 500 MG TAB (TYLENOL) PO SCH (05:19)
[2020-04-15 05:43] LABS: BASOPHILS % (AUTO) 0 % (0-10); EOSINOPHILS # (AUTO) 0.3 10^3/uL (0.0-0.3); EOSINOPHILS % (AUTO) 2 % (0-10); HEMATOCRIT 29 % (35-52); HEMOGLOBIN 9.4 g/dL (11.5-16.0); LYMPHOCYTES # (AUTO) 4.9 10^3/uL (1.0-4.0); LYMPHOCYTES % (AUTO) 24 % (12-44); MEAN CORPUSCULAR HEMOGLOBIN 30 pg (25-34); MEAN CORPUSCULAR HGB CONC 33 g/dL (32-36); MEAN CORPUSCULAR VOLUME 89 fL (80-99); MEAN PLATELET VOLUME 12.3 fL (9.0-12.2); MONOCYTES # (AUTO) 1.1 10^3/uL (0.0-1.0); MONOCYTES % (AUTO) 5 % (0-12); NEUTROPHILS # (AUTO) 14.1 10^3/uL (1.8-7.8); NEUTROPHILS % (AUTO) 69 % (42-75); PLATELET COUNT 183 10^3/uL (130-400); WHITE BLOOD COUNT 20.7 10^3/uL (4.3-11.0)
--- NOTE | 2020-04-15 07:21 | NUR ---
Report given to Esthela SILVA
[2020-04-15] MEDS ORDERED: OXYC1TAB87 PO (07:24)
[2020-04-15] MEDS ORDERED: IBUP-844 PO (07:24)
[2020-04-15] MEDS: DOCUSATE SODIUM 100 MG (COLACE) CAP PO SCH (08:24)
[2020-04-15] MEDS: oxyCODONE/APAP 5/325MG (PERCOCET 5) TABLET PO PRN ×3 (08:25→17:00)
[2020-04-15 08:26] VITALS: BP 140/95
--- NOTE | 2020-04-15 09:07 | Anesthesia-Regional Post-Op ---
Regional Patient Condition Mental Status: Alert, Oriented x3 Circulation: Same as Pre-Op Headache: Absent Sensation: Full Recovery Motor Block: Absent Post Op Complications Complications None Follow Up Care/Instructions Patient Instructions None needed. Anesthesia/Patient Condition Patient is doing well, no complaints, stable vital signs, no apparent adverse anesthesia problems. No complications reported per nursing. WILSON FOSTER CRNA Apr 15, 2020 09:07
[2020-04-15] MEDS ORDERED: FLU QUADRIvalent (3YOA+) 60 mcg/0.5 ml 2020-21 (AFLURIA) IM ONE (10:30)
--- NOTE | 2020-04-15 12:01 | Discharge Summary ---
Discharge Inst-[facility] Reconcile Patient Problems Problems Reviewed?: Yes Depart Medications New, Converted or Re-Newed RX: RX on Chart Follow Up/Instructions Goal/Follow Up: Dr. Chaney in 6 weeks. Activity Activity: Activity as Tolerated Driving Instructions: You May Drive NO SMOKING: NO SMOKING Nothing Inside Vagina: No Douching, No [place], No Tampons Diet Discharge Diet: No Restrictions Symptoms to Report to : Fever Over 101 Degrees F, Vaginal Bleeding Increase For Any Problems or Questions: Contact Your Physician MAYRA CHANEY MD Apr 15, 2020 12:01
--- NOTE | 2020-04-15 12:04 | Discharge Summary ---
Diagnosis/Chief Complaint Date of Admission Apr 14, 2020 at 14:19 Date of Discharge Apr 15, 2020 Admission Diagnosis Admission Diagnosis Labor at 38 weeks. Discharge Diagnosis vaginal delivery at 38 weeks. Problems/Diagnosis: (1) care following vaginal delivery Discharge Summary-OBS Procedures None. Discharge Physical Examination Allergies: Coded Allergies: amoxicillin (Verified Allergy, Mild, RASH, 09/22/18) Penicillins (Verified Allergy, Unknown, 09/22/18) Sulfa (Sulfonamide Antibiotics) (Verified Allergy, Unknown, 09/22/18) sulfamethoxazole (Verified Allergy, Unknown, 03/24/20) trimethoprim (Verified Allergy, Unknown, 03/24/20) Vitals & I&Os Intake and Output 04/15/20 00:00 Intake Total 2000 ml Balance 2000 ml Vital Sign - Last 12Hours Date Time Temp Pulse Resp B/P (MAP) Pulse Ox O2 Delivery O2 Flow Rate FiO2 04/15/20 08:26 37.2 100 18 140/95 (110) 100 Room Air General Appearance: Alert, Oriented X3 HEENT: Atraumatic Respiratory: Clear to Auscultation Cardiovascular: Regular Rate Abdominal: Other (fundus firm beloq umbilicus) Extremities: No Edema Psych/Mental Status: Mental Status NL Hospital Course Was the Problem List Reviewed?: Yes Uneventful course. Labs Laboratory Tests 04/14/20 14:54: White Blood Count 19.6H, Red Blood Count 3.37L, Hemoglobin 9.9L, Hematocrit 30L, Mean Corpuscular Volume 89, Mean Corpuscular Hemoglobin 29, Mean Corpuscular Hemoglobin Concent 33, Red Cell Distribution Width 14.7H, Platelet Count 212, Mean Platelet Volume 12.5H, Immature Granulocyte % (Auto) 1, Neutrophils (%) (Auto) 72, Lymphocytes (%) (Auto) 22, Monocytes (%) (Auto) 4, Eosinophils (%) (Auto) 1, Basophils (%) (Auto) 0, Neutrophils # (Auto) 14.1H, Lymphocytes # (Auto) 4.2H, Monocytes # (Auto) 0.9, Eosinophils # (Auto) 0.2, Basophils # (Auto) 0.0, Immature Granulocyte # (Auto) 0.1, Neutrophils % (Manual) 75, Lymp hocytes % (Manual) 19, Monocytes % (Manual) 4, Eosinophils % (Manual) 2, Basophils % (Manual) 0, Band Neutrophils 0, Blood Morphology Comment NORMAL 04/14/20 15:04: Urine Color YELLOW, Urine Clarity CLEAR, Urine pH 7.0, Urine Specific [place] 1.010L, Urine Protein NEGATIVE, Urine Glucose (UA) NEGATIVE, Urine Ketones NEGATIVE, Urine Nitrite NEGATIVE, Urine Bilirubin NEGATIVE, Urine Urobilinogen 1.0, Urine Leukocyte Esterase 2+H, Urine RBC (Auto) NEGATIVE, Urine RBC NONE, Urine WBC 5-10H, Urine Squamous Epithelial Cells 2-5, Urine Crystals NONE, Urine Bacteria TRACE, Urine Casts NONE, Urine Mucus NEGATIVE, Urine Culture Indicated YES 04/15/20 05:22: White Blood Count 20.7H, Red Blood Count 3.19L, Hemoglobin 9.4L, Hematocrit 29L, Mean Corpuscular Volume 89, Mean Corpuscular Hemoglobin 30, Mean Corpuscular Hemoglobin Concent 33, Red Cell Distribution Width 14.6H, Platelet Count 183, Mean Platelet Volume 12.3H, Immature Granulocyte % (Auto) 1, Neutrophils (%) (Auto) 69, Lymphocytes (%) (Auto) 24, Monocytes (%) (Auto) 5, Eosinophils (%) (Auto) 2, Basophils (%) (Auto) 0, Neutrophils # (Auto) 14.1H, Lymphocytes # (Auto) 4.9H, Monocytes # (Auto) 1.1H, Eosinophils # (Auto) 0.3, Basophils # (Auto) 0.0, Immature Granulocyte # (Auto) 0.2H Microbiology 04/14/20 Urine Culture - Preliminary, Resulted Probable Klebsiella/Enterobact Discharge Instructions to patient/family Please see electronic discharge instructions given to patient. Discharge Medications Reviewed and agree with Discharge Medication list on patient's Discharge Instruction sheet Clinical Quality Measures DVT/VTE Risk/Contraindication: Risk Factor Score Per Nursin RFS Level Per Nursing on Admit: 1=Low/No VTE PPX MAYRA CHANEY MD Apr 15, 2020 12:04
[2020-04-15 14:53] VITALS: BP 137/82
== END 2020-04-15 18:30 | disposition home or self-care (01) | DRG 807 ==
LOC: WSo 14:18 → LDRP 14:19
PROVIDERS: ADMIT Family Medicine; ATTEND Family Medicine
PROC: 10E0XZZ Delivery of Products of Conception, External Approach (ICD-10-PCS; principal; 2020-04-14)
DX: O80 Encounter for full-term uncomplicated delivery (principal); Z37.0 Single live birth; Z3A.38 38 weeks gestation of pregnancy
CPT/HCPCS: 36415; 81000; 85007; 85025; 85027; 86850; 86900; 86901; 87077; 87088; 90686; 90707; 90715; 99213

== ENCOUNTER → 2021-05-17 | Outpatient (CLI) | payer MEDICAID ==
[~2021-05-17] MED LIST changes: +CLIN-144 PO; -CLIN300C11 PO; +IBUP-844 PO; +OXYC1TAB87 PO
[2021-05-17 16:15] LABS: HEMATOCRIT 42 % (35-52); MEAN CORPUSCULAR HEMOGLOBIN 30 pg (25-34); MEAN CORPUSCULAR VOLUME 89 fL (80-99); WHITE BLOOD COUNT 16.5 10^3/uL (4.3-11.0)
[2021-05-17 16:16] LABS: BASOPHILS % (AUTO) 0 % (0-10); EOSINOPHILS % (AUTO) 0 % (0-10); LYMPHOCYTES % (AUTO) 12 % (12-44); MEAN CORPUSCULAR HGB CONC 33 g/dL (32-36); MONOCYTES % (AUTO) 6 % (0-12); NEUTROPHILS # (AUTO) 13.4 X 10^3 (1.8-7.8); NEUTROPHILS % (AUTO) 81 % (42-75); PLATELET COUNT 296 10^3/uL (130-400)
[2021-05-17 16:26] LABS: BAND NEUTROPHILS 0 %; BASOPHILS % (MANUAL) 0 %; EOSINOPHILS % (MANUAL) 0 %; LYMPHOCYTES % (MANUAL) 12 %; MONOCYTES % (MANUAL) 7 %; NEUTROPHILS % (MANUAL) 81 %
[2021-05-17 16:54] LABS: CARBON DIOXIDE 20 MMOL/L (21-32); CHLORIDE 100 MMOL/L (98-107); POTASSIUM 3.7 MMOL/L (3.6-5.0); SODIUM 133 MMOL/L (135-145)
[2021-05-17 16:55] LABS: ALANINE AMINOTRANSFERASE 9 U/L (0-55); ALBUMIN 4.6 GM/DL (3.2-4.5); ALKALINE PHOSPHATASE 74 U/L (40-136); BILIRUBIN,TOTAL 0.6 MG/DL (0.1-1.0); BUN/CREATININE RATIO 6; CALCIUM 9.6 MG/DL (8.5-10.1); CREATININE SERUM 0.72 MG/DL (0.60-1.30); GFR ESTIMATED 100; GLUCOSE 98 MG/DL (70-105); TOTAL PROTEIN 7.7 GM/DL (6.4-8.2)
== END ==
LOC: LAB FS 15:22
PROVIDERS: ATTEND Registered Nurse Emergency
DX: N10 Acute pyelonephritis (principal)
CPT/HCPCS: 36415; 80053; 85007; 85027; 87088

== ENCOUNTER → 2021-05-18 | Outpatient (CLI) | payer MEDICAID | LOC: LABNPT 14:59 | PROVIDERS: ATTEND Family Medicine | DX: N10 Acute pyelonephritis (principal); R07.0 Pain in throat | CPT/HCPCS: 87070 ==

== ENCOUNTER → 2021-07-29 | Outpatient (CLI) | payer MEDICAID | LOC: LAB FS 11:45 | PROVIDERS: ATTEND Family Medicine | DX: O20.9 Hemorrhage in early pregnancy, unspecified (principal) | CPT/HCPCS: 36415; 84702 ==

== ENCOUNTER 2021-12-01 18:55 | Emergency (ER) | payer MEDICAID ==
[~2021-12-01] VITALS: Ht 157.4 cm; Wt 81.3 kg
[2021-12-01] MEDS ORDERED: PROG200C10 (19:36)
[2021-12-01] MEDS ORDERED: KETOROLAC 30 MG/ML VIAL IVP ONE (19:45)
[2021-12-01] MEDS ORDERED: NS IV 1000 ML 1,000 ML IV SCH (19:45)
[2021-12-01] MEDS ORDERED: ONDANSETRON 4 MG/2 ML (SDV) Z0FRAN IVP ONE (19:45)
--- NOTE | 2021-12-01 19:53 | ED GU-Female ---
General Chief Complaint: OB < 20 WEEKS Stated Complaint: ABNORMAL VAG BLEEDING,WEAKNESS,FEVER Nursing Triage Note: Patient arrived to ED per POV ambulated to ED 2 reporting miscarriage at 7 weeks gestation started Sun and having in office D&C yesterday at Dr Aviles. Pt is to continue Progesterone, Folic Acid, and Prenatals. Reports heavy bleeding changing every 1 1/2 hrs with passing 6-7 large clots today. Reported her symptoms to Dr Frost's office and was told to go to ER. Source: patient Exam Limitations: no limitations History of Present Illness Date Seen by Provider: Dec 01, 2021 Time Seen by Provider: 19:00 Initial Comments Patient is a 26-year-old female G6, P3, AB 3 who was diagnosed with miscarriage yesterday at week 7 with office D&C procedure performed by Dr. Aviles. Patient reports continued pelvic pain, back cramping and heavy vaginal bleeding. She states she is changing pads every 90 minutes and has passed several large clots. No dizziness chest pain palpitations or shortness of breath. No fever chills. No other symptoms or complaints. Timing/Duration: yesterday Severity/Quality: other Location: other Radiation: other Activities at Onset: other Sexual Ava History: other Modifying Factors: Improves With Other Associated Symptoms: other Allergies and Home Medications Allergies Coded Allergies: amoxicillin (Verified Allergy, Mild, RASH, 09/22/18) Penicillins (Verified Allergy, Unknown, 09/22/18) Sulfa (Sulfonamide Antibiotics) (Verified Allergy, Unknown, 09/22/18) sulfamethoxazole (Verified Allergy, Unknown, 03/24/20) trimethoprim (Verified Allergy, Unknown, 03/24/20) cephalexin (Unverified Adverse Reaction, Unknown, 12/01/21) Patient Home Medication List Home Medication List Reviewed: Yes Folic Acid (Folic Acid) 0.8 Mg Capsule, 0.8 MG PO DAILY, (Reported) Entered as Reported by: YOLANDA ORDONEZ on 02/14/20 1340 Ibuprofen (Ibu) 600 Mg Tablet, 600 MG PO Q6HR Prescribed by: MAYRA CHANEY on 04/15/20 0724 Vit W-Ca,Fe,FA(<1 mg) ( Vitamins) 1 Each Tablet, 1 EACH PO DAILY, (Reported) Entered as Reported by: YOLANDA ORDONEZ on 02/14/20 1340 Progesterone,Micronized (Progesterone) 200 Mg Capsule, (Reported) Entered as Reported by: KATHERINE MORILLO on 12/01/211935 Last Action: New Order Discontinued Medications Oxycodone HCl/Acetaminophen (Percocet 5-325 mg Tablet) 1 Each Tablet, 1 TAB PO Q4H Discontinued Reason: Referral/FU Appt-Addtl Prescribed by: MAYRA CHANEY on 04/15/20 07 Last Action: Discontinued Review of Systems Review of Systems Constitutional: see HPI EENTM: see HPI Respiratory: see HPI Cardiovascular: see HPI Gastrointestinal: see HPI Genitourinary: see HPI : No Past Qoaicja-Jidfey-Rdxxuz Hx Patient Social History Tobacco Use?: No Seasonal Allergies Seasonal Allergies: No Past Medical History Surgeries: No Respiratory: No Cardiac: No Neurological: No Last Menstrual Period: Oct 19, 2021 Genitourinary: No Gastrointestinal: No Musculoskeletal: No Endocrine: No HEENT: No Cancer: No Psychosocial: No Anxiety, Depression Integumentary: No Blood Disorders: No Physical Exam Vital Signs Vital Signs - First Documented 12/01/21 19:05 Temp 37.0 Pulse 91 Resp 16 B/P (MAP) 150/92 (111) Pulse Ox 100 O2 Delivery Room Air Capillary Refill : Less Than 3 Seconds Height, Weight, BMI Height: 5'1.00" Weight: 150lbs. oz. 68.477884bt; 32.00 BMI Method:Stated General Appearance: WD/WN, no apparent distress HEENT: PERRL/EOMI, normal ENT inspection Neck: non-tender, full range of motion Cardiovascular: regular rate, rhythm Respiratory: lungs clear Gastrointestinal: soft, other (Minimal tenderness) Back: normal inspection, no CVA tenderness Neurologic/Psychiatric: alert, normal mood/affect, oriented x 3 Focused Exam Sepsis Stage: Ruled Out Respiratory: Lungs Clear Cardiovascular: Regular Rate, Rhythm Progress/Results/Core Measures Suspected Sepsis SIRS Temperature: Pulse: 91 Respiratory Rate: 16 Laboratory Tests 12/01/21 19:45: White Blood Count 10.3 Blood Pressure 150 /92 Mean: 111 Laboratory Tests 12/01/21 19:45: Platelet Count 327 Results/Orders Lab Results Laboratory Tests Test 12/01/21 19:45 Range/Units White Blood Count 10.3 4.3-11.0 10^3/uL Red Blood Count 4.43 3.80-5.11 10^6/uL Hemoglobin 13.0 11.5-16.0 g/dL Hematocrit 39 35-52 % Mean Corpuscular Volume 88 80-99 fL Mean Corpuscular Hemoglobin 29 25-34 pg Mean Corpuscular Hemoglobin Concent 33 32-36 g/dL Red Cell Distribution Width 13.7 10.0-14.5 % Platelet Count 327 130-400 10^3/uL Mean Platelet Volume 9.9 9.0-12.2 fL Immature Granulocyte % (Auto) 0 % Neutrophils (%) (Auto) 67 42-75 % Lymphocytes (%) (Auto) 27 12-44 % Monocytes (%) (Auto) 5 0-12 % Eosinophils (%) (Auto) 1 0-10 % Basophils (%) (Auto) 0 0-10 % Neutrophils # (Auto) 6.9 1.8-7.8 10^3/uL Lymphocytes # (Auto) 2.8 1.0-4.0 10^3/uL Monocytes # (Auto) 0.5 0.0-1.0 10^3/uL Eosinophils # (Auto) 0.1 0.0-0.3 10^3/uL Basophils # (Auto) 0.0 0.0-0.1 10^3/uL Immature Granulocyte # (Auto) 0.0 0.0-0.1 10^3/uL My Orders Orders - SIMON MELENDREZ DO Cbc With Automated Diff (12/01/21 19:38) Ns Iv 1000 Ml (Sodium Chloride 0.9%) (12/01/21 19:45) Ondansetron Injection (Zofran Injectio (12/01/21 19:45) Ketorolac Injection (Toradol Injection) (12/01/21 19:45) Medications Given in ED Current Medications Medications Dose Ordered Sig/Dandy Route Start Time Stop Time Status Last Admin Dose Admin Ketorolac Tromethamine 30 mg ONCE ONCE IVP 12/01/21 19:45 12/01/21 19:46 DC 12/01/21 19:49 30 MG Ondansetron HCl 4 mg ONCE ONCE IVP 12/01/21 19:45 12/01/21 19:46 DC 12/01/21 19:49 4 MG Vital Signs/I&O 12/01/21 12/01/21 19:05 19:49 Temp 37.0 37.0 Pulse 91 Resp 16 B/P (MAP) 150/92 (111) Pulse Ox 100 O2 Delivery Room Air Capillary Refill : Less Than 3 Seconds Blood Pressure Mean: 111 Departure Impression Primary Impression: Incomplete miscarriage with blood clot Disposition: HOME, SELF-CARE Condition: Stable Departure-Patient Inst. Decision time for Depature: 20:18 Referrals: MAYRA CHANEY MD (PCP) Primary Care Physician VANESSA AVILES DO (Family) Primary Care Physician Patient Instructions: Miscarriage Add. Discharge Instructions: Please continue Tylenol #3 and take Motrin for pain and follow up with Dr. Aviles office in the AM. All discharge instructions reviewed with patient and/or family. Voiced understanding. SIMON MELENDREZ DO Dec 01, 2021 19:53
[2021-12-01 20:10] LABS: BASOPHILS % (AUTO) 0 % (0-10); EOSINOPHILS # (AUTO) 0.1 10^3/uL (0.0-0.3); EOSINOPHILS % (AUTO) 1 % (0-10); HEMATOCRIT 39 % (35-52); LYMPHOCYTES # (AUTO) 2.8 10^3/uL (1.0-4.0); LYMPHOCYTES % (AUTO) 27 % (12-44); MEAN CORPUSCULAR HEMOGLOBIN 29 pg (25-34); MEAN CORPUSCULAR HGB CONC 33 g/dL (32-36); MEAN CORPUSCULAR VOLUME 88 fL (80-99); MEAN PLATELET VOLUME 9.9 fL (9.0-12.2); MONOCYTES # (AUTO) 0.5 10^3/uL (0.0-1.0); MONOCYTES % (AUTO) 5 % (0-12); NEUTROPHILS # (AUTO) 6.9 10^3/uL (1.8-7.8); NEUTROPHILS % (AUTO) 67 % (42-75); PLATELET COUNT 327 10^3/uL (130-400); WHITE BLOOD COUNT 10.3 10^3/uL (4.3-11.0)
[2021-12-01 21:50] VITALS: BP 142/88
== END 2021-12-01 21:50 | disposition home or self-care (01) ==
LOC: EDUNIT# 18:55 → ER FS 18:56
DX: O03.4 Incomplete spontaneous abortion without complication (principal)
CPT/HCPCS: 36415; 85025

== ENCOUNTER → 2022-04-19 | Outpatient (CLI) | payer MEDICAID ==
[~2022-04-19] MED LIST changes: +PROG200C10
== END ==
LOC: LAB FS 14:02
PROVIDERS: ATTEND Registered Nurse Emergency
DX: N92.5 Other specified irregular menstruation (principal)
CPT/HCPCS: 36415; 84702